=== PATIENT | male | born 1970 | race Caucasian/White ===

== ENCOUNTER 2017-12-18 05:22 | Emergency (ER) | payer BC, OTHER ==
[2017-12-18] MEDS: LIDOCAINE/MYLANTA 40 ML BTL PO (06:28)
[2017-12-18] MEDS: SOD CHLORIDE 0.9% 1,000 ML IV ×2 (06:28→09:28)
[2017-12-18] MEDS: BELLADONNA/PHENOBARBITAL TAB PO (06:28)
[2017-12-18] MEDS: FAMOTIDINE 20 MG INJ IV (06:28)
[2017-12-18 06:46] LABS: ADD MAN DIFF? NO
[2017-12-18 06:48] LABS: BASOPHILS % 0.3 % (0.0-2.0); EOSINOPHILS # 0.1 10^3/ul (0.0-0.5); EOSINOPHILS % 0.8 % (0.0-7.0); HEMATOCRIT 45.2 % (42.0-52.0); HEMOGLOBIN 15.3 g/dl (14.0-18.0); LYMPHOCYTES % 18.4 % (15.0-51.0); MEAN CORPUSCULAR HEMOGLOBIN 29.9 pg (29.0-33.0); MEAN CORPUSCULAR HGB CONC 33.8 g/dl (32.0-37.0); MEAN CORPUSCULAR VOLUME 88.5 fl (82.0-101.0); MEAN PLATELET VOLUME 11.5 fl (7.4-10.4); MONOCYTE # 0.9 10^3/ul (0.3-0.9); MONOCYTES % 8.3 % (0.0-11.0); NEUTROPHIL # 7.9 10^3/ul (1.6-7.5); NEUTROPHILS % 71.8 % (39.0-77.0); PLATELET COUNT 229 10^3/UL (140-415); RED BLOOD COUNT 5.11 10^6/ul (4.70-6.10); RED CELL DISTRIBUTION WIDTH 12.3 % (11.5-14.5)
[2017-12-18 07:05] LABS: ALANINE AMINOTRANSFERASE 42 IU/L (13-69); ALBUMIN 4.5 g/dl (3.3-4.9); ALBUMIN/GLOBULIN RATIO 1.28; ALKALINE PHOSPHATASE 76 IU/L (42-121); ANION GAP 18 (8-16); ASPARTATE AMINO TRANSFERASE 29 IU/L (15-46); BILIRUBIN,INDIRECT 0.4 mg/dl (0-1.1); BILIRUBIN,TOTAL 0.4 mg/dl (0.2-1.3); BLOOD UREA NITROGEN 15 mg/dl (7-20); CALCIUM 9.2 mg/dl (8.4-10.2); CARBON DIOXIDE 26 mmol/L (21-31); CHLORIDE 105 mmol/L (97-110); CREATININE 1.01 mg/dl (0.61-1.24); GLUCOSE 96 mg/dl (70-220); LIPASE 130 U/L (23-300); POTASSIUM 4.3 mmol/L (3.5-5.1); SODIUM 145 mmol/L (135-144)
[2017-12-18 07:06] LABS: INR 0.87; PROTIME 11.9 Sec (11.9-14.9); PT RATIO 0.9
[2017-12-18 07:07] LABS: PARTIAL THROMBOPLASTIN TIME 41.6 Sec (25.0-35.0)
[2017-12-18 07:17] LABS: TROPONIN-I < 0.012 ng/ml (0.00-0.12)
[2017-12-18] MEDS: IOHEXOL 100 ML (08:07)
[2017-12-18] MEDS: SOD CHLORIDE 0.9% 100 ML (08:07)
[2017-12-18] MEDS: IOHEXOL 350MG/ML 50 ML BTL (08:08)
[2017-12-18] MEDS: morphine 4 MG/ML VIAL IV (08:25)
[2017-12-18] MEDS: ONDANSETRON 4 MG INJ IV (08:25)
[2017-12-18 10:28] LABS: TROPONIN-I < 0.012 ng/ml (0.00-0.12)
[2017-12-18] MEDS: KETOROLAC 30 MG INJ IV (11:05)
== END 2017-12-18 11:18 | disposition home or self-care (01) ==
LOC: E/R 05:22
DX: R07.89 Other chest pain (principal); M79.1 Myalgia; R51 Headache
CPT/HCPCS: 36415; 71045; 71275; 80053; 83690; 84484; 85025; 85610; 85730; 93005; 96374; 96375; 99285-25